=== PATIENT | female | born 1990 | race Caucasian/White ===

== ENCOUNTER 2019-07-08 19:39 | Emergency (ER) | payer OTHER | END 2019-07-08 20:59 | disposition home or self-care (01) | LOC: FTE 20:59 | DX: Z34.93 Encounter for supervision of normal pregnancy, unspecified, third trimester (principal); Z3A.39 39 weeks gestation of pregnancy | CPT/HCPCS: 99282; Z7502 ==

== ENCOUNTER 2019-07-08 20:53 | Outpatient (CLI) | payer OTHER | END 2019-07-09 02:00 | disposition home or self-care (01) | LOC: OBT 20:53 → L-D 20:54 | DX: O9A.213 Injury, poisoning and certain other consequences of external causes complicating pregnancy, third trimester (principal); Z3A.39 39 weeks gestation of pregnancy | CPT/HCPCS: 76818 ==

== ENCOUNTER 2019-07-10 10:22 | Inpatient (IN) | payer OTHER ==
[2019-07-10] MEDS ORDERED: OXYCODONE/ASPIRIN (4.88/325) TAB PO (11:30)
[2019-07-10] MEDS ORDERED: MISOPROSTOL 200 MCG TAB PR (11:30)
[2019-07-10] MEDS ORDERED: OXYTOCIN 30 UNITS/LR 500 ML IV (11:30)
[2019-07-10] MEDS ORDERED: CARBOPROST 250 MCG INJ IM (11:30)
[2019-07-10] MEDS ORDERED: LIDOCAINE 1% (MPF) 30 ML INJ INJ (11:30)
[2019-07-10] MEDS ORDERED: IBUPROFEN 600 MG TAB PO (11:30)
[2019-07-10] MEDS ORDERED: METHYLERGONOVINE 0.2 MG INJ IM (11:30)
[2019-07-10] MEDS: LACTATED RINGER'S 1,000 ML IV ×2 (11:33→19:32)
[2019-07-10 11:41] LABS: ADD MAN DIFF? NO
[2019-07-10 11:43] LABS: WHITE BLOOD COUNT 8.5 10^3/ul (4.8-10.8)
[2019-07-10 11:43] LABS: BASOPHILS % 0.4 % (0.0-2.0); EOSINOPHILS % 0.2 % (0.0-7.0); HEMATOCRIT 41.2 % (37.0-47.0); LYMPHOCYTES # 1.7 10^3/ul (0.8-2.9); LYMPHOCYTES % 19.8 % (15.0-51.0); MEAN CORPUSCULAR HEMOGLOBIN 31.1 pg (29.0-33.0); MEAN CORPUSCULAR VOLUME 91.6 fl (82.0-101.0); MEAN PLATELET VOLUME 9.6 fl (7.4-10.4); MONOCYTE # 0.6 10^3/ul (0.3-0.9); MONOCYTES % 7.3 % (0.0-11.0); NEUTROPHIL # 6.1 10^3/ul (1.6-7.5); NEUTROPHILS % 71.7 % (39.0-77.0); PLATELET COUNT 263 10^3/UL (140-415); RED CELL DISTRIBUTION WIDTH 13.5 % (11.5-14.5)
[2019-07-10 12:08] LABS: INR 0.88; PARTIAL THROMBOPLASTIN TIME 30.4 Sec (23.0-35.0); PT RATIO 0.9
[2019-07-10 12:41] LABS: HEPATITIS B SURFACE ANTIGEN NEGATIVE (NEGATIVE)
[2019-07-10] MEDS: OXYTOCIN 30 UNITS/LR 500 ML IV (14:02)
[2019-07-10 18:25] LABS: RAPID PLASMA REAGIN NONREACTIVE (NR)
[2019-07-10] MEDS: BUTORPHANOL 2 MG INJ IV (21:44)
[2019-07-10] MEDS ORDERED: BUTORPHANOL 2 MG INJ IV (22:00)
[2019-07-11] MEDS ORDERED: NALOXONE (0.4 MG/ML) INJ IV
[2019-07-11] MEDS ORDERED: DIPHENHYDRAMINE 50 MG INJ IV
[2019-07-11] MEDS ORDERED: TRIMETHOBENZAMIDE 100 MG/ML VIAL IM
[2019-07-11] MEDS ORDERED: FENTAnyl 2MCG/ML-ROPIV 0.2% 100 ML (00:11)
[2019-07-11] MEDS: LACTATED RINGER'S 1,000 ML IV ×4 (00:43→22:05)
[2019-07-11] MEDS: ONDANSETRON 4 MG INJ IV (08:00)
[2019-07-11] MEDS: FENTAnyl 2MCG/ML-ROPIV 0.2% 100 ML BAG EPI ×2 (09:14→17:45)
[2019-07-11] MEDS: GENTAMICIN 90 MG in SOD CHLORIDE 0.9% 100 ML IV ×2 (10:51→18:03)
[2019-07-11] MEDS: AMPICILLIN 1 GM/NS (PMX) 50 ML IVPB ×4 (12:14→21:17)
[2019-07-12] MEDS: OXYTOCIN 30 UNITS/LR 500 ML IV ×2 (00:17→00:18)
[2019-07-12] MEDS ORDERED: ONDANSETRON 4 MG INJ IV (00:30)
[2019-07-12] MEDS ORDERED: MISOPROSTOL 200 MCG TAB PR (00:30)
[2019-07-12] MEDS ORDERED: DIBUCAINE 1% 30 GM OINT TOP (00:30)
[2019-07-12] MEDS ORDERED: MAGNESIUM HYDROXIDE 30ML CUP PO (00:30)
[2019-07-12] MEDS ORDERED: ONDANSETRON 4 MG TAB PO (00:30)
[2019-07-12] MEDS ORDERED: WITCH HAZEL/GLYCERIN PAD PR (00:30)
[2019-07-12] MEDS ORDERED: LANOLIN HPA 1 PKT TOP (00:30)
[2019-07-12] MEDS ORDERED: NA PHOSPHATE/BIPHOS 133 ML ENEMA PR (00:30)
[2019-07-12] MEDS ORDERED: OXYTOCIN 30 UNITS/LR 500 ML IV (00:30)
[2019-07-12] MEDS ORDERED: SENNA/DOCUSATE NA (8.6MG/50MG) TAB PO (00:30)
[2019-07-12] MEDS ORDERED: DIPHENHYDRAMINE 50 MG INJ IV (00:30)
[2019-07-12] MEDS ORDERED: CARBOPROST 250 MCG INJ IM (00:30)
[2019-07-12] MEDS ORDERED: HYDROCODONE/APAP (5/325) TAB PO ×2 (00:30)
[2019-07-12] MEDS ORDERED: DIPHENHYDRAMINE 25 MG CAP PO (00:30)
[2019-07-12] MEDS: AMPICILLIN 1 GM/NS (PMX) 50 ML IVPB ×6 (03:16→22:54)
[2019-07-12] MEDS: BENZOCAINE 20% 56 ML SPRAY TOP (03:33)
[2019-07-12] MEDS: GENTAMICIN 90 MG in SOD CHLORIDE 0.9% 100 ML IV ×3 (04:33→17:56)
[2019-07-12] MEDS: IBUPROFEN 600 MG TAB PO ×3 (06:13→17:56)
[2019-07-12] MEDS: LACTATED RINGER'S 1,000 ML IV* ×3 (06:45→16:06)
[2019-07-12] MEDS: SENNA/DOCUSATE NA (8.6MG/50MG) TAB PO ×2 (09:07→21:11)
[2019-07-12] MEDS: LACTATED RINGER'S 1,000 ML IV ×2 (12:18→22:57)
[2019-07-13] MEDS: LACTATED RINGER'S 1,000 ML IV* ×2 (00:06→08:06)
[2019-07-13] MEDS: IBUPROFEN 600 MG TAB PO ×5 (00:27→23:35)
[2019-07-13] MEDS: GENTAMICIN 90 MG in SOD CHLORIDE 0.9% 100 ML IV ×2 (01:52→10:52)
[2019-07-13] MEDS: AMPICILLIN 1 GM/NS (PMX) 50 ML IVPB ×4 (02:59→13:09)
[2019-07-13] MEDS: LACTATED RINGER'S 1,000 ML IV (03:09)
[2019-07-13 08:30] LABS: ADD MAN DIFF? NO
[2019-07-13 08:47] LABS: WHITE BLOOD COUNT 9.7 10^3/ul (4.8-10.8)
[2019-07-13 08:47] LABS: BASOPHILS % 0.3 % (0.0-2.0); EOSINOPHILS # 0.1 10^3/ul (0.0-0.5); EOSINOPHILS % 1.1 % (0.0-7.0); HEMATOCRIT 33.5 % (37.0-47.0); HEMOGLOBIN 11.1 g/dl (12.0-16.0); LYMPHOCYTES # 1.9 10^3/ul (0.8-2.9); LYMPHOCYTES % 19.7 % (15.0-51.0); MEAN CORPUSCULAR HEMOGLOBIN 31.3 pg (29.0-33.0); MEAN CORPUSCULAR HGB CONC 33.1 g/dl (32.0-37.0); MEAN CORPUSCULAR VOLUME 94.4 fl (82.0-101.0); MEAN PLATELET VOLUME 9.5 fl (7.4-10.4); MONOCYTE # 0.8 10^3/ul (0.3-0.9); MONOCYTES % 7.7 % (0.0-11.0); NEUTROPHIL # 6.8 10^3/ul (1.6-7.5); NEUTROPHILS % 70.6 % (39.0-77.0); PLATELET COUNT 206 10^3/UL (140-415); RED BLOOD COUNT 3.55 10^6/ul (4.20-5.40); RED CELL DISTRIBUTION WIDTH 13.3 % (11.5-14.5)
[2019-07-13] MEDS: SENNA/DOCUSATE NA (8.6MG/50MG) TAB PO ×2 (10:03→22:21)
[2019-07-14] MEDS: IBUPROFEN 600 MG TAB PO ×2 (05:45→12:20)
[2019-07-14] MEDS: VARICELLA VACCINE LIVE/PF 1,350 UNIT/0.5 ML ML SC* (09:00)
[2019-07-14] MEDS: MEASLES,MUMPS,RUBELLA VACCINE INJ SC* (09:00)
[2019-07-14] MEDS: DIPHTH/TET/ACEL PERTUSS (ADULT) 0.5 ML VIAL IM* (09:00)
[2019-07-14] MEDS: SENNA/DOCUSATE NA (8.6MG/50MG) TAB PO (09:23)
== END 2019-07-14 16:01 | disposition home or self-care (01) | DRG 806 ==
LOC: OBT 10:22 → PP1 07-12 02:06 → L-D 10:22 → OBT 11:00 → L-D 11:00
PROVIDERS: Specialist
PROC: 10E0XZZ Delivery of Products of Conception, External Approach (ICD-10-PCS; principal; 2019-07-12)
PROC: 0HQ9XZZ Repair Perineum Skin, External Approach (ICD-10-PCS; 2019-07-12)
DX: O69.81X0 Labor and delivery complicated by cord around neck, without compression, not applicable or unspecified (principal); O71.4 Obstetric high vaginal laceration alone; Z37.0 Single live birth; Z3A.39 39 weeks gestation of pregnancy
CPT/HCPCS: 62322; 85025; 85610; 85730; 86592; 86850; 86900; 86901; 87340; 88307; 90716; 99464